=== PATIENT | female | born 1930 | race Caucasian/White ===

== ENCOUNTER → 2017-11-10 13:26 | Outpatient (CLI) | payer MEDICARE, OTHER ==
[2015-04-21 12:52] VITALS: BMI 24.6
[~2017-11-10 13:26] MED LIST: BAYER CHEWABLE81 MG PO; LIPOFEN150 MG PO; LOPRESSOR25 MG PO; TRIGLIDE160 MG PO; VITAMIN D2000 UNIT PO; ZESTRIL20 MG PO
== END | disposition home or self-care (01) ==
LOC: D.US 13:26
DX: N83.209 Unspecified ovarian cyst, unspecified side (principal)

== ENCOUNTER → 2019-03-12 09:25 | Outpatient (CLI) | payer MEDICARE, OTHER ==
[2015-04-21 12:52] VITALS: BMI 24.6
== END | disposition home or self-care (01) ==
LOC: D.HCCECHO 03-05 13:30
PROVIDERS: ATTEND Internal Medicine Cardiovascular Disease
DX: I34.0 Nonrheumatic mitral (valve) insufficiency (principal); I10 Essential (primary) hypertension

== ENCOUNTER 2020-05-04 13:47 | Emergency (ER) | payer MEDICARE, OTHER ==
[~2020-05-04] VITALS: Ht 162.6 cm; Wt 59.1 kg
[2020-05-04 13:51] VITALS: Ht 162.6 cm; Wt 59.1 kg
[2020-05-04] MEDS ORDERED: COZAAR50 MG PO (13:55)
[2020-05-04] MEDS ORDERED: HYDROCODON-ACE1 EAC7 PO (15:32)
[2020-05-04 15:53] VITALS: BP 180/67
== END 2020-05-04 15:54 | disposition home or self-care (01) ==
LOC: D.ER 13:47
DX: S22.39XA Fracture of one rib, unspecified side, initial encounter for closed fracture (principal); W19.XXXA Unspecified fall, initial encounter; Y93.9 Activity, unspecified; Y92.9 Unspecified place or not applicable; I10 Essential (primary) hypertension